=== PATIENT | male | born 1965 | race Two or more races ===

== ENCOUNTER 2017-06-05 13:25 | Emergency (ER) | payer BC ==
[~2017-06-05] VITALS: Ht 167.6 cm; Wt 65.1 kg
[2017-06-05] MEDS ORDERED: SULFAMETH./TRIMETHOPRIM DS 800MG/160MG TABLET ONE (14:51)
[2017-06-05 14:58] LABS: HEMATOCRIT 48.3 % (39.2-51.8); HEMOGLOBIN 16.5 g/dL (13.7-18.0); WHITE BLOOD COUNT 7.7 x10^3/uL (3.4-10)
[2017-06-05] MEDS ORDERED: SULFAMETH./TRIMETHOPRIM DS 800MG/160MG TABLET PO ONE (15:00)
[2017-06-05] MEDS ORDERED: SODIUM CHLORIDE 0.9% 1,000ML IVBOLUS ONE (15:00)
[2017-06-05] MEDS ORDERED: SODIUM CHLORIDE FLUSH 10ML SYR IVF ONE (15:00)
[2017-06-05 15:08] LABS: BLOOD UREA NITROGEN 15 mg/dL (7-18)
[2017-06-05 16:15] VITALS: BP 121/78
== END 2017-06-05 16:23 | disposition home or self-care (01) ==
LOC: ED 16:16
DX: R19.7 Diarrhea, unspecified (principal); R11.0 Nausea
CPT/HCPCS: 36415; 80048; 82040; 85025; 96360; 99284; J7030

== ENCOUNTER 2018-12-16 15:13 | Emergency (ER) | payer BC, OTHER ==
[~2018-12-16] VITALS: Ht 167.6 cm; Wt 68.1 kg
[2018-12-16 15:30] VITALS: BP 117/77
[2018-12-16] MEDS ORDERED: KETOROLAC 30 MG/1 ML ONE (16:18)
[2018-12-16] MEDS ORDERED: KETOROLAC 30 MG/1 ML IM ONE (16:30)
== END 2018-12-16 16:51 | disposition home or self-care (01) ==
LOC: EDBD 15:13 → ED 16:45
DX: G89.29 Other chronic pain (principal); M25.512 Pain in left shoulder; M13.112 Monoarthritis, not elsewhere classified, left shoulder
CPT/HCPCS: 73030; 96372; 99283; J1885

== ENCOUNTER 2019-11-16 10:50 | Emergency (ER) | payer OTHER ==
[~2019-11-16] VITALS: Ht 167.6 cm; Wt 67.0 kg
--- NOTE | 2019-11-16 11:28 | NUR ---
PATIENT PRESENTS TO ED WITH C/O DIZZNESS X 10 DAYS. WORSE WHEN CHANGING POSTIONS. STATES PRETTY BAD IN THE MORNING WHEN GETTING UP AND ALSO WHEN LYING ON THE FLOOR WORKING ON CARS AND THEN GETTING UP. PT DENIES VISIONS CHANGES. DENIES HEAD. BP HAS BEEN SLIGHTLY ELEVATED. PT ALSO COMPLAINING OF SOME RIGHT SIDED NEXT PAIN THAT RADIATES INTO SHOULDER/ARM.
[2019-11-16 11:59] LABS: BASOPHILS # (AUTO) 0.03 x10^3/uL (0-0.1); BASOPHILS % (AUTO) 0 % (0-1); EOSINOPHILS # (AUTO) 0.14 x10^3/uL (0-0.4); EOSINOPHILS % (AUTO) 2 % (1-7); LYMPHOCYTES # (AUTO) 2.42 x10^3/uL (1-3.4); LYMPHOCYTES % (AUTO) 32 % (22-44); MD NO; MEAN CORPUSCULAR HEMOGLOBIN 32.4 pg (27.5-34.5); MEAN CORPUSCULAR HGB CONC 34.3 g/dL (33.2-36.2); MEAN CORPUSCULAR VOLUME 94.5 fL (81-97); MEAN PLATELET VOLUME 9.2 fL (7.4-10.4); MONOCYTES # (AUTO) 0.58 x10^3/uL (0.2-0.8); MONOCYTES % (AUTO) 8 % (2-9); NEUTROPHILS % (AUTO) 58 % (42-75); PLATELET COUNT 252 x10^3/uL (130-400); RED BLOOD COUNT 5.21 x10^6/uL (4.38-5.82); RED CELL DISTRIBUTION WIDTH 13.2 % (9.4-14.8)
[2019-11-16 12:18] LABS: ALANINE AMINOTRANSFERASE 37 U/L (12-78); ALBUMIN 3.7 g/dL (3.4-5.0); ANION GAP 5 mmol/L (5-15); CALCIUM 8.7 mg/dL (8.5-10.1); CHLORIDE 108 mmol/L (98-107)
[2019-11-16 12:21] LABS: ALKALINE PHOSPHATASE 84 U/L (45-117); BILIRUBIN,TOTAL 0.5 mg/dL (0.2-1.0); TOTAL PROTEIN 7.9 g/dL (6.4-8.2)
[2019-11-16 12:22] VITALS: BP 120/81
--- NOTE | 2019-11-16 12:49 | NUR ---
RESULTS BACK. PT UP FOR RECHECK. REPORT TO STACI RENDON.
== END 2019-11-16 13:38 | disposition home or self-care (01) ==
LOC: ED 11:27
DX: S46.811A Strain of other muscles, fascia and tendons at shoulder and upper arm level, right arm, initial encounter (principal); H11.32 Conjunctival hemorrhage, left eye; H81.392 Other peripheral vertigo, left ear; H81.12 Benign paroxysmal vertigo, left ear; R94.31 Abnormal electrocardiogram [ECG] [EKG]; F17.200 Nicotine dependence, unspecified, uncomplicated; X58.XXXA Exposure to other specified factors, initial encounter; Y93.89 Activity, other specified; Y92.89 Other specified places as the place of occurrence of the external cause; Y99.8 Other external cause status
CPT/HCPCS: 36415; 80053; 85025; 93005; 99284